=== PATIENT | male | born 1930 | race Two or more races ===

== ENCOUNTER → 2016-10-06 | Outpatient (CLI) | payer OTHER | END | disposition home or self-care (01) | LOC: Rad HDHVI 13:51 | PROVIDERS: ATTEND Internal Medicine Cardiovascular Disease | DX: I25.2 Old myocardial infarction (principal); I73.9 Peripheral vascular disease, unspecified | CPT/HCPCS: 93306; 93926 ==

== ENCOUNTER → 2016-12-18 | Outpatient (CLI) | payer OTHER ==
[~2016-12-18] MED LIST: ATEN-60 PO; B-COTAB59 OR; DOCU-80 PO; LIDO2SOL18 TOP; LISI-275 PO; MELO-85 PO; MORP15TA PO; MULTTAB99 PO; OMEP20CA74 PO; ROPI1TAB22 PO; TOPI25TA32 PO; VENL150C PO
[2016-12-18 09:00] VITALS: BP 134/72
[2016-12-18 09:30] VITALS: BP 132/74
[2016-12-18 12:13] LABS: Basophils # (auto) 0 uL; Basophils % (auto) 0.5 % (0.0-2.0); Eosinophils # (auto) 0.1 uL; Eosinophils % (auto) 2.4 % (0.0-7.0); Hematocrit 39.8 % (41.0-53.0); Hemoglobin 13.4 g/dL (13.5-17.5); Lymphocytes # (auto) 1.1 uL; Lymphocytes % (auto) 23.6 % (10.0-50.0); Mean Corpuscular Hemoglobin 31.6 pg (28.0-32.0); Mean Corpuscular Hgb Conc. 33.6 g/dL (32.0-36.0); Mean Corpuscular Volume 94.1 fL (80.0-100.0); Mean Platelet Volume 8.1 fL (7.4-10.4); Monocytes # (auto) 1.1 uL; Neutrophils # (auto) 2.2 uL; Neutrophils % (auto) 48.2 % (37.0-80.0); Nucleated Red Blood Cells % 0.7 %; Platelet Count (auto) 165 10^3/uL (140-450); Red Cell Distribution Width 15.3 % (11.6-16.0); White Blood Cell 4.5 10^3/uL (4.4-10.8)
[2016-12-18 12:18] LABS: Monocytes % (auto) 25.3 % (0.0-12.0)
[2016-12-18 12:26] LABS: BUN/Creatinine Ratio 14.6; Calcium 8.2 mg/dL (8.5-10.1); Potassium 3.9 mmol/L (3.5-5.1)
[2016-12-18 13:04] LABS: INR 0.93 (0.9-1.15); Partial Thromboplastin Time 27.8 sec (22.64-33.71); Prothrombin Time 10.1 sec (9.37-12.3)
== END | disposition home or self-care (01) ==
LOC: CHF HDHVI 08:53
PROVIDERS: ATTEND Internal Medicine Cardiovascular Disease
DX: Z01.812 Encounter for preprocedural laboratory examination (principal); I10 Essential (primary) hypertension; D64.9 Anemia, unspecified; R79.1 Abnormal coagulation profile
CPT/HCPCS: 36415; 80048; 85025; 85610; 85730; 93005; G0463

== ENCOUNTER 2016-12-22 11:22 | Inpatient (IN) | payer OTHER ==
[~2016-12-22] VITALS: Ht 172.7 cm; Wt 78.7 kg
[2016-12-22] MEDS ORDERED: LIDOCAINE 2%HCL (LOCAL ANESTH.) INJ 20ML MDV ONE ×2 (11:37→14:00)
[2016-12-22] MEDS ORDERED: IOHEXOL 350 MG/ML 100ML IJ ONE ×2 (11:37→13:47)
[2016-12-22] MEDS ORDERED: ceFAZolin 1GM/50ML D5W 50 ML IV ONE (12:05)
[2016-12-22] MEDS ORDERED: VANCOMYCIN 1GM/250ML D5W 250 ML IV ONE (12:05)
[2016-12-22] MEDS ORDERED: VANCOMYCIN HCL 1000 MG VL ONE (12:05)
[2016-12-22] MEDS ORDERED: fentaNYL CITRATE 100 MCG/2 ML VL ONE (12:33)
[2016-12-22] MEDS ORDERED: MIDAZOLAM HCL 1MG/1ML-2 ML VIAL ONE ×2 (12:34→14:34)
[2016-12-22] MEDS ORDERED: HYDROmorphone HCL 2 MG/ML VL ONE (13:49)
[2016-12-22] MEDS ORDERED: FUROSEMIDE 40 MG/4 ML VIAL ONE (14:34)
[2016-12-22] MEDS ORDERED: HYDROcodone-ACET 5/325MG TAB PO PRN (16:00)
[2016-12-22] MEDS ORDERED: NITROGLYCERIN 0.4 MG SL TAB SL PRN (16:00)
[2016-12-22] MEDS ORDERED: MORPHINE SULF INJ 2 MG/ML SYRINGE 1ML IV PRN (16:00)
[2016-12-22] MEDS ORDERED: ACETAMINOPHEN 325 MG TAB PO PRN (16:00)
[2016-12-22 18:20] VITALS: BP 120/67
[2016-12-22] MEDS: MORPHINE SULFATE 10 MG/5 ML ORAL SOLN PO SCH (21:59)
[2016-12-22] MEDS: TOPIRAMATE 25 MG TAB PO SCH (21:59)
[2016-12-22] MEDS: VANCOMYCIN 1GM/250ML D5W 250 ML IV SCH (21:59)
[2016-12-22 22:00] VITALS: BP 115/63
[2016-12-23 05:32] VITALS: BP 115/67
[2016-12-23] MEDS: MORPHINE SULFATE 10 MG/5 ML ORAL SOLN PO SCH (05:33)
[2016-12-23 08:00] VITALS: BP 145/79
[2016-12-23 08:17] VITALS: BP 104/57
[2016-12-23 09:00] VITALS: BP 104/57
[2016-12-23] MEDS ORDERED: PANTOPRAZOLE 40 MG TAB PO SCH (10:00)
[2016-12-23] MEDS ORDERED: MELOXICAM 7.5 MG PO SCH (10:00)
[2016-12-23] MEDS ORDERED: DOCUSATE SOD 100 MG CAP PO SCH (10:00)
[2016-12-23] MEDS ORDERED: MULTIPLE VITAMIN TAB PO SCH (10:00)
[2016-12-23] MEDS ORDERED: LISINOPRIL 5 MG TAB PO SCH (10:00)
[2016-12-23] MEDS ORDERED: VENLAFAXINE HCL 37.5mg XR cap PO SCH (10:00)
[2016-12-23] MEDS: VANCOMYCIN 1GM/250ML D5W 250 ML IV SCH (10:00)
[2016-12-23] MEDS ORDERED: ATENOLOL 25 MG TAB PO SCH (10:00)
[2016-12-23] MEDS: TOPIRAMATE 25 MG TAB PO SCH (10:02)
== END 2016-12-23 11:30 | disposition home or self-care (01) | DRG 226 ==
LOC: CATH 11:22 → TELE-CENTR 11:23
PROVIDERS: ADMIT Internal Medicine Cardiovascular Disease; ATTEND Internal Medicine Cardiovascular Disease
PROC: 0JH609Z Insertion of Cardiac Resynchronization Defibrillator Pulse Generator into Chest Subcutaneous Tissue and Fascia, Open Approach (ICD-10-PCS; principal; 2016-12-22)
PROC: 02HL3KZ Insertion of Defibrillator Lead into Left Ventricle, Percutaneous Approach (ICD-10-PCS; 2016-12-22)
PROC: 02H63KZ Insertion of Defibrillator Lead into Right Atrium, Percutaneous Approach (ICD-10-PCS; 2016-12-22)
PROC: 02HK3KZ Insertion of Defibrillator Lead into Right Ventricle, Percutaneous Approach (ICD-10-PCS; 2016-12-22)
DX: I44.0 Atrioventricular block, first degree (principal); I50.21 Acute systolic (congestive) heart failure; I42.0 Dilated cardiomyopathy; I44.7 Left bundle-branch block, unspecified; I25.10 Atherosclerotic heart disease of native coronary artery without angina pectoris
CPT/HCPCS: 71010; 93005; 99152; 99153; J0690; J2250

== ENCOUNTER → 2017-01-01 | Outpatient (CLI) | payer OTHER | END | disposition home or self-care (01) | LOC: Rad HDHVI 14:45 | PROVIDERS: ATTEND Internal Medicine Cardiovascular Disease | DX: I50.23 Acute on chronic systolic (congestive) heart failure (principal); I25.5 Ischemic cardiomyopathy | CPT/HCPCS: 93306 ==

== ENCOUNTER → 2017-10-07 | Outpatient (CLI) | payer OTHER ==
[~2017-10-07] MED LIST changes: -MELO-85 PO; +MELO1TAB73 PO; +ROPI1TAB PO; -ROPI1TAB22 PO
== END | disposition home or self-care (01) ==
LOC: Rad HDHVI 07:59
PROVIDERS: ATTEND Internal Medicine Cardiovascular Disease
DX: I07.1 Rheumatic tricuspid insufficiency (principal); I25.5 Ischemic cardiomyopathy; I11.0 Hypertensive heart disease with heart failure; I50.43 Acute on chronic combined systolic (congestive) and diastolic (congestive) heart failure; I25.10 Atherosclerotic heart disease of native coronary artery without angina pectoris
CPT/HCPCS: 93306

== ENCOUNTER → 2018-06-30 | Outpatient (CLI) | payer OTHER ==
[~2018-06-30] MED LIST changes: -VENL150C PO; +VENL150C2 PO
== END | disposition home or self-care (01) ==
LOC: Rad HDHVI 09:33
PROVIDERS: ATTEND Internal Medicine Cardiovascular Disease
DX: I08.1 Rheumatic disorders of both mitral and tricuspid valves (principal); I25.5 Ischemic cardiomyopathy; I50.23 Acute on chronic systolic (congestive) heart failure; R55 Syncope and collapse; I27.21 Secondary pulmonary arterial hypertension
CPT/HCPCS: 93306

== ENCOUNTER → 2018-11-15 | Outpatient (CLI) | payer OTHER | END | disposition home or self-care (01) | LOC: Rad HDHVI 10:57 | PROVIDERS: ATTEND Internal Medicine Cardiovascular Disease | DX: I73.9 Peripheral vascular disease, unspecified (principal) | CPT/HCPCS: 93926 ==

== ENCOUNTER → 2020-04-10 | Outpatient (CLI) | payer OTHER | END | disposition home or self-care (01) | LOC: Rad HDHVI 08:08 | PROVIDERS: ATTEND Internal Medicine Cardiovascular Disease | DX: I08.1 Rheumatic disorders of both mitral and tricuspid valves (principal); I27.20 Pulmonary hypertension, unspecified; I42.0 Dilated cardiomyopathy; I50.43 Acute on chronic combined systolic (congestive) and diastolic (congestive) heart failure | CPT/HCPCS: 93306 ==

== ENCOUNTER → 2020-04-24 | Outpatient (CLI) | payer OTHER ==
[~2020-04-24] VITALS: Ht 177.8 cm; Wt 70.3 kg
[~2020-04-24] MED LIST changes: +ADENOSINE 59 MG in GIVE UN-DILUTED 0 ML IV ONE; +ADENOSINE 90 MG/30 ML INJ IV ONE; -TOPI25TA32 PO; +TOPI25TA43 PO
== END | disposition home or self-care (01) ==
LOC: Rad HDHVI 08:57
PROVIDERS: ATTEND Internal Medicine Cardiovascular Disease
DX: I25.10 Atherosclerotic heart disease of native coronary artery without angina pectoris (principal); I25.5 Ischemic cardiomyopathy; I21.9 Acute myocardial infarction, unspecified; E78.5 Hyperlipidemia, unspecified; R06.02 Shortness of breath; I51.7 Cardiomegaly; Z95.810 Presence of automatic (implantable) cardiac defibrillator
CPT/HCPCS: 78452; 93005; 96374; 96375; A9500; J0153